=== PATIENT | male | born 2000 | race Caucasian/White ===

== ENCOUNTER → 2021-03-13 | Outpatient (CLI) | payer OTHER ==
--- NOTE | 2021-03-13 13:59 | RAD ---
XR HAND_RIGHT 3 VIEWS History: Right hand swelling. Comparison: None. Technique: 3 views the right hand. Findings: Osseous mineralization is normal. No fracture or dislocaton. No significant degenerative changes. Sof t tissues are unremarkable. Impression: 1. No acute osseous abnormality of the right hand. Electronically signed by: Regulo Spann MD (03/13/2021 1:57 PM) [id number]
== END ==
LOC: RAD 13:32
PROVIDERS: ATTEND Physician Assistant
DX: S69.91XA Unspecified injury of right wrist, hand and finger(s), initial encounter (principal); M79.89 Other specified soft tissue disorders; X58.XXXA Exposure to other specified factors, initial encounter; Y93.89 Activity, other specified; Y92.89 Other specified places as the place of occurrence of the external cause; Y99.8 Other external cause status
CPT/HCPCS: 73130